=== PATIENT | male | born 1975 | race American Indian/Alaskan Native ===

== ENCOUNTER 2019-09-15 20:16 | Emergency (ER) | payer SELFPAY ==
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
--- NOTE | 2019-09-15 21:13 | XRay Report ---
RIGHT SHOULDER 3 VIEWS INDICATION / CLINICAL INFORMATION: Injury with right shoulder pain. History of prior dislocation. COMPARISON: None available. FINDINGS: BONES / JOINT(S): No acute fracture or subluxation. No significant arthritis. SOFT TISSUES: No significant abnormality. ADDITIONAL FINDINGS: The visualized portion of the right lung is clear. IMPRESSION: No acute abnormality. Signer Name: Lenin Isaac MD Signed: 09/15/2019 9:09 PM Workstation Name: [id number]
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
[2019-09-15] MEDS ORDERED: hydrALAZINE 25 MG TAB PO ONE (21:24)
[2019-09-15] MEDS ORDERED: IBUPROFEN 800 MG TAB PO ONE (21:41)
[2019-09-15 22:43] VITALS: BP 162/90
== END 2019-09-15 23:51 | disposition home or self-care (01) ==
LOC: ED 20:16
DX: S46.911A Strain of unspecified muscle, fascia and tendon at shoulder and upper arm level, right arm, initial encounter (principal); I10 Essential (primary) hypertension; F17.200 Nicotine dependence, unspecified, uncomplicated; Z98.890 Other specified postprocedural states; X58.XXXA Exposure to other specified factors, initial encounter; Y93.89 Activity, other specified; Y92.89 Other specified places as the place of occurrence of the external cause; Y99.8 Other external cause status
CPT/HCPCS: 93005; 93010